=== PATIENT | male | born 1980 | race Caucasian/White ===

== ENCOUNTER 2017-01-17 19:08 | Emergency (ER) | payer OTHER ==
[~2017-01-17] VITALS: Ht 167.6 cm; Wt 66.2 kg
[~2017-01-17 19:08] MED LIST: AMOXICILLIN500 MG PO; BACLOFEN10 MG OR; BACLOFEN20 MG PO; CEPHALEXIN500 MG OR; CLEOCIN150 MG PO; CLINDAMYCIN150 MG OR; DENIES; FLEXERIL OR; FLEXERIL10 MG PO; FLEXERIL5 M1 PO; INDOMETHACIN25 MG OR; INDOMETHACIN50 MG PO; LORTAB 10 PO; LORTAB 10-325 M1 TAB PO; LORTAB 5 OR; LORTAB5 OR; LORTAB5 PO; MECLIZINE12.5 MG PO; MELOXICAM7.5 MG PO; MOTRIN800 MG OR; NAPROSYN500 MG OR; NAPROSYN500 MG PO; NO MEDS; PERCOCET 5/325M1 TAB OR; PRILOSEC20 MG PO; PRILOSEC40 MG OR; REMERON15 MG OR; SKELAXIN800 MG OR; TYLENOL500 MG OR
[2017-01-17 20:25] VITALS: BP 118/79
== END 2017-01-17 20:36 | DRG 125 ==
LOC: ED 19:08
PROC: 0HQ1XZZ Repair Face Skin, External Approach (ICD-10-PCS; principal; 2017-01-17)
DX: S01.111A Laceration without foreign body of right eyelid and periocular area, initial encounter (principal); Y04.2XXA Assault by strike against or bumped into by another person, initial encounter; Y93.89 Activity, other specified; Y92.143 Cell of prison as the place of occurrence of the external cause

== ENCOUNTER 2017-03-31 22:44 | Emergency (ER) | payer SELFPAY ==
[~2017-03-31] VITALS: Ht 180.3 cm; Wt 65.9 kg
[2017-03-31 23:40] VITALS: BP 123/76
== END 2017-03-31 23:40 | disposition home or self-care (01) | DRG 605 ==
LOC: ED 22:44
PROC: 0HQGXZZ Repair Left Hand Skin, External Approach (ICD-10-PCS; principal; 2017-03-31)
DX: S61.211A Laceration without foreign body of left index finger without damage to nail, initial encounter (principal); W25.XXXA Contact with sharp glass, initial encounter; Y93.89 Activity, other specified; Y92.828 Other wilderness area as the place of occurrence of the external cause

== ENCOUNTER 2021-07-21 13:34 | Emergency (ER) | payer SELFPAY ==
[~2021-07-21] VITALS: Ht 180.3 cm; Wt 66.0 kg
[2021-07-21] MEDS ORDERED: CYCLOBENZAPRINE10 MG PO (14:58)
[2021-07-21] MEDS ORDERED: NAPROXEN500 MG PO (14:58)
[2021-07-21] MEDS ORDERED: HYDROCO/APAP1 TA9 PO (14:58)
[2021-07-21 15:07] VITALS: BP 131/85
== END 2021-07-21 15:13 | disposition home or self-care (01) | DRG 999 ==
LOC: ED 13:34
DX: M54.6 Pain in thoracic spine (principal); G89.29 Other chronic pain; S32.010A Wedge compression fracture of first lumbar vertebra, initial encounter for closed fracture; F17.200 Nicotine dependence, unspecified, uncomplicated; X58.XXXA Exposure to other specified factors, initial encounter

== ENCOUNTER 2021-08-16 14:51 | Emergency (ER) | payer SELFPAY ==
[~2021-08-16] VITALS: Ht 180.3 cm; Wt 70.0 kg
[~2021-08-16 14:51] MED LIST changes: +CYCLOBENZAPRINE10 MG PO; +HYDROCO/APAP1 TA9 PO; +NAPROXEN500 MG PO
[2021-08-16] MEDS ORDERED: FLEXERIL5 M1 PO (17:23)
[2021-08-16] MEDS ORDERED: MOBIC7.5 M1 PO (17:23)
[2021-08-16 17:59] VITALS: BP 122/81
== END 2021-08-16 17:59 | disposition home or self-care (01) | DRG 552 ==
LOC: ED 14:51
DX: S32.019A Unspecified fracture of first lumbar vertebra, initial encounter for closed fracture (principal); F17.210 Nicotine dependence, cigarettes, uncomplicated; X58.XXXA Exposure to other specified factors, initial encounter

== ENCOUNTER 2021-11-17 09:45 | Emergency (ER) | payer MEDICAID ==
[~2021-11-17] VITALS: Ht 180.3 cm; Wt 70.3 kg
[~2021-11-17 09:45] MED LIST changes: +MOBIC7.5 M1 PO
[2021-11-17 10:26] VITALS: BP 127/88
[2021-11-17 10:31] VITALS: BP 131/82
[2021-11-17] MEDS ORDERED: GABAPENTIN100 MG PO (10:39)
[2021-11-17 11:01] VITALS: BP 99/68
[2021-11-17 11:30] VITALS: BP 111/74
[2021-11-17 12:24] VITALS: BP 111/74
== END 2021-11-17 12:07 | disposition home or self-care (01) ==
LOC: ED 09:45
DX: M54.6 Pain in thoracic spine (principal); F17.210 Nicotine dependence, cigarettes, uncomplicated

== ENCOUNTER 2022-10-20 09:13 | Observation (INO) | payer MEDICAID ==
[2022-10-20] VITALS (25 sets, daily range): BP systolic 70–143; BP diastolic 49–88
[~2022-10-20] VITALS: Ht 180.3 cm; Wt 93.6 kg
[~2022-10-20 09:13] MED LIST changes: +GABAPENTIN100 MG PO
[2022-10-20 12:12] LABS: BASO% 0.3 % (0-3); EOS% 0.5 % (0-8); IMMATURE GRANULOCYTES 0.2 % (0.0-5.0); LYMPH% 7.2 % (15-41); MEAN CELL VOLUME 89.8 fL CALC (80.0-100.0); MEAN CORPUSCULAR HGB 29.7 pG CALC (26.0-32.0); MEAN CORPUSCULAR HGB CONC 33.1 g/dL CAL (32.0-36.0); MONO% 11.2 % (2-13); NEUT# 13.11 thou/uL (1.82-7.42); NEUT% 80.6 % (42-76); RED BLOOD COUNT 4.11 mill/uL (4.70-6.10); RED CELL DISTRI WIDTH 12.3 % (11.5-15.5)
[2022-10-20 12:17] LABS: HEMATOCRIT 36.9 % (39.0-50.0); HEMOGLOBIN 12.2 g/dl (14.0-18.0)
[2022-10-20 12:21] LABS: ANION GAP 11 (6-22 (CALC)); BUN 20 mg/dL (9-20); BUN/CREATININE RATIO 26 (12-20 (CALC)); CARBON DIOXIDE 29 mmol/l (22-30); CHLORIDE 103 mmol/l (95-108); CREATININE 0.8 mg/dL (0.7-1.3); GFR FOR AFR.AMER. > 60 ML/MIN (>=60 (CALC)); GFR OTHER RACES > 60 ML/MIN (>=60 (CALC)); POTASSIUM 3.5 mmol/l (3.5-5.1); SGOT/AST 24 u/l (17-59); SODIUM 139 mmol/l (137-146); TOTAL PROTEIN 6.2 g/dL (6.3-8.2)
[2022-10-20 12:25] LABS: ALBUMIN 3.3 g/dL (3.2-5.0); ALKALINE PHOSPHATASE 169 u/l (38-126); BILIRUBIN, TOTAL 0.4 mg/dL (0.2-1.3)
--- NOTE | 2022-10-20 13:50 | NUR ---
pPT TRANSPORTED TO [facility] ROOM 268
--- NOTE | 2022-10-20 13:58 | NUR ---
PT TO MED SURG RM 268 FROM ER, REPORT RECIEVED FROM NURSE. PT IS ALERT AND ORIENTED X 3, PT HAS C/O PAIN TO LEFT @ 6/10 ON PAIN SCALE; PT WAS MEDICATED WITH PRN PAIN MEDS PRIOR TO LEAVING ER. PT IV SITE TO RAC CLEAN AND INTACT WITH NS @ 125 ML/HR INFUSING AND VANCO PIGGY BACKED SECONDARY. PT LUNGS CLEAR THROUGHOUT. ABD SOFT AND BS ACTIVE, LAST BM REPORTED WAS YESTERDAY. PT HAS ABCESS TO LEFT GROIN, RED AND PAINFUL. PT SCHEDULED FOR I&D IN OR TODAY @ 1500. CONSENTS OBTAINED. PT HAS URINAL AT BEDSIDE. PT HAS CALL LIGHT Applico REACH AND ALL SAFETY MEASURES IN PLACE AT THIS TIME.
--- NOTE | 2022-10-20 14:00 | NUR ---
RT IN ROOM TO EXPLAIN THE IS, PT DID RETURN DEMONSTRATION.
--- NOTE | 2022-10-20 15:05 | NUR ---
PT TRANSFERRED TO OR VIA STRETCHER FOR I&D.
[2022-10-20 15:09] LABS: URINE BLOOD DIPSTICK Negative (NEGATIVE); URINE COLOR Dark yellow; URINE GLUCOSE - DIPSTICK Negative (NEGATIVE); URINE KETONE Trace mg/dL (NEGATIVE); URINE LEUK ESTERASE Negative (NEGATIVE); URINE NITRITE - DIPSTICK Negative (Negative); URINE PH 5.5 (4.5-8.0); URINE PROTEIN - DIPSTICK 100 mg/dL (NEG-TRACE); URINE SPECIFIC GRAVITY 1.025
[2022-10-20 15:20] LABS: URINE RBC 0-2 RBC/hpf (0-5); URINE WBC 0-2 WBC/hpf (0-5)
[2022-10-20 15:21] LABS: URINE MUCUS FEW hpf (NONE-FEW)
[2022-10-20 15:22] LABS: URINE CASTS FEW lpf (NONE-RARE)
--- NOTE | 2022-10-20 16:00 | NUR ---
PT IN OR.
--- NOTE | 2022-10-20 16:58 | NUR ---
PT RETURNED FROM OR, POST OP I&D TO LEFT GROIN. PT IS LAERT AND ORIENTED, PT HAS C/O PAIN AT 2/10 TO INCISION SITE, WILL MEDICATE WITH PAIN MEDICATION WHEN NEXT DUE. PT HAS DRESSING CLEAN, DRY AND INTACT TO LEFT GROIN. SCD'S APPLIED. IV SITE TO RAC CLEAN AND INTACT WITH NS @ 125ML/ HR INFUSING. PT HAS IS AT BEDSIDE. PT HAS CALL LIGHT WITHIN REACH. VSS, WILL CONTINUE TO MONITOR PT VSS.
--- NOTE | 2022-10-20 19:59 | NUR ---
BEDSIDE REPORT RECIEVED. PT A/OX3. RESPIRATIONS EVEN AND UNLABORED ON ROOM AIR. LUNG SOUNDS CLEAR. HEART RHYTHM NORMAL. BOWEL SOUNDS ACTIVE. #20G RAC INFUSING WITH IVF PER ORDER. DRESSING NOTED TO LEFT GROIN. DRESSING CHANGES PER ORDER. PT C/O OF 7/10 PAIN IN LEFT GROIN, TO BE MEDICATED PER EMAR. PT DENIES OF ANY ADDITIONALA NEEDS. PT INFORMED OF F/U VISIT WITH DR BAE 10/28/22 AT 9AM. PT ORIENTED TO ROOM AND CALL LIGHT SYSTEM. ALL SAFETY PRECAUTIONS ARE IN PLACE WITH CALL LIGHT IN REACH.
--- NOTE | 2022-10-20 22:50 | NUR ---
DRESSING CHANGE TO LEFT GROIN COMPLETED PER ORDER. PT TOLERTED WELL. DRESSING REMAINS CDI.
[2022-10-21 00:14] VITALS: BP 115/71
--- NOTE | 2022-10-21 00:21 | NUR ---
PT RESTING IN SEMI FOWLERS POSITION. RESPIRATIONS EVEN AND UNLABORED ON ROOM AIR. DRESSING REMAINS CDI.SCHEDULED MEDS ADMINISTERED. PT DENIES OF ANY NEEDS. ALL SAFETY PRECAUTIONS IN PLACE WITH CALL LIGHT IN REACH.
[2022-10-21 04:00] VITALS: BP 115/58
[2022-10-21 04:03] VITALS: BP 115/58
--- NOTE | 2022-10-21 04:23 | NUR ---
PT SLEEPING IN SEMI FOWLERS POSITION. RESPIRATIONS EVEN AND UNLABORED ON ROOM AIR. #20G RAC INFUSING WITH IVF PER ORDER. DRESSING REMAINS CDI. NO S/S OF DISTRESS. ALL SAFETY PRECAUTIONS ARE IN PLACE WITH CALL LIGHT IN REACH.
[2022-10-21 05:19] LABS: BASO% 0.5 % (0-3); HEMATOCRIT 32.8 % (39.0-50.0); HEMOGLOBIN 10.8 g/dl (14.0-18.0); IMMATURE GRANULOCYTES 0.1 % (0.0-5.0); LYMPH% 20.1 % (15-41); MEAN CELL VOLUME 91.1 fL CALC (80.0-100.0); MEAN CORPUSCULAR HGB CONC 32.9 g/dL CAL (32.0-36.0); MONO% 9.5 % (2-13); NEUT# 6.5 thou/uL (1.82-7.42); NEUT% 67.8 % (42-76); RED BLOOD COUNT 3.6 mill/uL (4.70-6.10); RED CELL DISTRI WIDTH 12.6 % (11.5-15.5)
[2022-10-21 05:23] LABS: ALKALINE PHOSPHATASE 125 u/l (38-126); ANION GAP 7 (6-22 (CALC)); BILIRUBIN, TOTAL 0.3 mg/dL (0.2-1.3); BUN 13 mg/dL (9-20); BUN/CREATININE RATIO 21 (12-20 (CALC)); CARBON DIOXIDE 27 mmol/l (22-30); CHLORIDE 106 mmol/l (95-108); CREATININE 0.6 mg/dL (0.7-1.3); GFR FOR AFR.AMER. > 60 ML/MIN (>=60 (CALC)); GFR OTHER RACES > 60 ML/MIN (>=60 (CALC)); POTASSIUM 3.6 mmol/l (3.5-5.1); SGOT/AST 34 u/l (17-59); SODIUM 136 mmol/l (137-146)
[2022-10-21 05:27] LABS: ALBUMIN 2.4 g/dL (3.2-5.0); TOTAL PROTEIN 4.9 g/dL (6.3-8.2)
[2022-10-21 06:45] VITALS: BP 93/50
--- NOTE | 2022-10-21 08:00 | NUR ---
GOT REPORT FROM WIRE FENCE BUILDER NURSE. PATIENT ASSESSED. AOX4. PATIENT HAS NO CONCERNS AT THIS TIME HOWEVER HAS A PAIN LEVEL OF 9/10 AND WOULD LIKE PAIN MEDICATION. NO OTHER COMPLAINTS. CALL LIGHT AND BEDSIDE TABLE WITH IN REAACH OF PATIENT. ADVISED TO CALL IF NEEDING ANYTHING.
[2022-10-21] MEDS ORDERED: AMOX/K CLAV875 M1 PO (09:32)
[2022-10-21] MEDS ORDERED: LORTAB 5/3255 MG PO (09:33)
[2022-10-21 10:15] VITALS: BP 111/62
--- NOTE | 2022-10-21 11:00 | NUR ---
PATIENT BEING DISCHARGED. BUT PATIENT STATES THAT HIS PAIN IS BACK AND WOULD LIKE PAIN MEDICATION BEFORE HE LEAVES SO IT GIVES HIM TIME TO PERMIT REVIEW ASSISTANT HIS PAIN MEDICATION. IV PAIN MEDICATION BEING GIVEN. PATIENT SPOUSE DID WOUND DRESSING IN FRONT OF ME. NO QUESTIONS FROM HER NOR PATIENT.
--- NOTE | 2022-10-21 12:00 | NUR ---
PATIENT WANTED TO BE DISCHARGED HOW [facility] L[facility]CH TRAYS CAME AND WAS DELIVERED AND PATIENT WANTED TO FINISH HIS LUNCH BEFORE LEAVING.
--- NOTE | 2022-10-21 12:49 | NUR ---
Discharge instructions given. Patient verbalizes understanding of same. Discharged in stable condition via Wheelchair to Home with family. All belongings sent with pt.
== END 2022-10-21 12:40 | disposition home or self-care (01) ==
LOC: ED 09:13 → ED-I 11:30 → ED 12:05 → MS2 12:06
PROVIDERS: Nurse Practitioner; ADMIT Surgery; ATTEND Surgery
DX: L02.214 Cutaneous abscess of groin (principal); B95.0 Streptococcus, group A, as the cause of diseases classified elsewhere; F17.210 Nicotine dependence, cigarettes, uncomplicated; Z20.822 Contact with and (suspected) exposure to COVID-19
CPT/HCPCS: G0378